=== PATIENT | male | born 1975 | race Caucasian/White ===

== ENCOUNTER 2019-03-13 21:47 | Emergency (ER) | payer OTHER ==
[~2019-03-13] VITALS: Ht 182.9 cm; Wt 72.6 kg
[~2019-03-13 21:47] MED LIST: IBUPROFEN 600600 M1 PO; MEDROLDOSEPACK; NORCO 5-325 TA1 EACH PO; ROBAXIN 750 MG750 M1 PO; VALIUM5 MG PO; VICODIN ES TAB1 EACH PO; [UNRECOGNIZED DRUG - REMARK]
[2019-03-13] MEDS ORDERED: BUFFERED ASPIR325 MG PO (22:08)
[2019-03-13] MEDS ORDERED: IBUPROFEN 800800 M1 PO (22:09)
[2019-03-13] MEDS ORDERED: ROBAXIN500 MG PO (22:36)
[2019-03-13] MEDS ORDERED: CAPSAICIN HOT1 EACH TOP (22:36)
[2019-03-13] MEDS ORDERED: MOBIC15 MG PO (22:36)
[2019-03-13 22:58] VITALS: BP 132/73
== END 2019-03-13 22:59 | disposition home or self-care (01) ==
LOC: ER 21:47
DX: M54.41 Lumbago with sciatica, right side (principal); F12.90 Cannabis use, unspecified, uncomplicated; Z79.82 Long term (current) use of aspirin

== ENCOUNTER 2019-03-18 01:38 | Emergency (ER) | payer OTHER ==
[~2019-03-18] VITALS: Ht 182.9 cm; Wt 72.6 kg
[~2019-03-18 01:38] MED LIST changes: +BUFFERED ASPIR325 MG PO; +CAPSAICIN HOT1 EACH TOP; +IBUPROFEN 800800 M1 PO; +MOBIC15 MG PO; +ROBAXIN500 MG PO
[2019-03-18 02:18] LABS: ABSOLUTE NEUTROPHILS 6.6 thou/uL (1.4-8.2); BASOPHILS 0.6 % (0.0-2.0); EOSINOPHILS 0.5 % (0.0-3.0); HEMATOCRIT 44.9 % (42.0-52.0); HEMOGLOBIN 15.6 gm/dL (14.0-18.0); LYMPHOCYTES 23.8 % (24.0-44.0); MCH 32.5 pg (26.0-34.0); MCHC 34.8 g/dL (28.0-37.0); MCV 93.2 fL (80.0-100.0); MONOCYTES 6.4 % (1.0-8.0); PLATELET COUNT 251 thou/uL (150-400); POLYS 68.7 % (36.0-66.0); RBC 4.81 mil/uL (4.50-6.00); RDW 13.1 % (10.5-14.5); WBC 9.6 thou/uL (4.0-11.0)
[2019-03-18 02:27] LABS: CALCIUM 8.3 mg/dL (8.5-10.1); CREATININE 1.1 mg/dL (0.7-1.3); POTASSIUM 3.3 mmol/L (3.5-5.1)
[2019-03-18 02:30] LABS: AMP/METHAMP Negative (Negative); BARBITURATES Negative (Negative); BENZODIAZEPINES Negative (Negative); COCAINE Negative (Negative); METHADONE Negative (Negative); OPIATES Negative (Negative); PCP Negative (Negative)
[2019-03-18 02:33] LABS: ALBUMIN 3.8 g/dL (3.4-5.0); TOTAL BILIRUBIN 0.8 mg/dL (<0.1-1.0); TOTAL PROTEIN 6.5 g/dL (6.4-8.2)
[2019-03-18] MEDS ORDERED: DIPHENHIST50 MG PO (02:58)
[2019-03-18 03:03] VITALS: BP 128/84
== END 2019-03-18 03:07 | disposition home or self-care (01) ==
LOC: ER 01:38
PROVIDERS: Emergency Medicine
DX: G47.00 Insomnia, unspecified (principal); F17.210 Nicotine dependence, cigarettes, uncomplicated; F12.10 Cannabis abuse, uncomplicated; F32.9 Major depressive disorder, single episode, unspecified; R44.0 Auditory hallucinations; M54.9 Dorsalgia, unspecified